=== PATIENT | male | born 1980 | race Caucasian/White ===

== ENCOUNTER → 2022-02-26 09:37 | Outpatient (BNVA) | payer OTHER, SELFPAY | PROVIDERS: Family Provider Family Medicine; Visit Provider Family Medicine | DX: F43.20 Adjustment disorder, unspecified (principal); G89.29 Other chronic pain; R51.9 Headache, unspecified; Z76.89 Persons encountering health services in other specified circumstances | CPT/HCPCS: 80053; 80061; 84443; 85025 ==

== ENCOUNTER → 2024-08-24 09:15 | Outpatient (BNVA) | payer OTHER, SELFPAY | PROVIDERS: Family Provider Family Medicine; PCP Family Medicine; Visit Provider Family Medicine | DX: R51.9 Headache, unspecified (principal); R40.0 Somnolence; R06.81 Apnea, not elsewhere classified; I10 Essential (primary) hypertension; E55.9 Vitamin D deficiency, unspecified; E87.6 Hypokalemia | CPT/HCPCS: 80053; 80061; 82306; 84439; 84443; 85027 ==